=== PATIENT | male | born 1995 | race Caucasian/White ===

== ENCOUNTER 2017-06-15 22:26 | Emergency (ER) | END 2017-06-16 01:54 | disposition left against medical advice (07) ==

== ENCOUNTER 2017-06-16 20:43 | Inpatient (IN) | END 2017-06-19 16:24 | disposition home or self-care (01) | DRG 603 ==

== ENCOUNTER 2018-10-06 12:22 | Emergency (ER) | payer OTHER ==
[~2018-10-06] VITALS: Ht 172.7 cm; Wt 95.1 kg
[~2018-10-06 12:22] MED LIST: LEVO750T8 PO
[2018-10-06 12:48] VITALS: BP 119/76; PULSE 112; RESP 20; Ht 172.7 cm; Wt 95.1 kg
[2018-10-06] MEDS ORDERED: HYDROCODONE/APAP (5/325) TAB PO ONE (15:00)
[2018-10-06] MEDS ORDERED: LIDOCAINE 1% (MPF) 5 ML VIAL INFIL ONE (15:00)
[2018-10-06] MEDS ORDERED: CEPH-443 PO (15:46)
[2018-10-06] MEDS ORDERED: HYDR-4011 PO (15:46)
[2018-10-06] MEDS ORDERED: SULF1TAB31 PO (15:46)
[2018-10-06] MEDS ORDERED: IBUP-1542 PO (15:46)
--- NOTE | 2018-10-06 15:52 | ERD ---
ER Documentation Chief Complaint Chief Complaint c/o abscess on coccyx area x1 day HPI 22-year-old male presents for coccyx swelling x1 day. He states that he thinks he has an abscess. He did have incision and drainage about a year and a half ago in the same area. States that his pain is 5 out of 10, burning sensation, nonradiating. No treatments tried at home. No other modifying factors noted. Denies fevers or chills. ROS All systems reviewed and are negative except as per history of present illness. Medications Home Meds Active Scripts Hydrocodone/Acetaminophen (Isleta 5-325 Tablet) 1 Each Tablet, 1 TAB PO Q6H PRN for PAIN, #10 TAB Prov:TWIN DENSON 10/06/18 Ibuprofen* (Motrin*) 600 Mg Tab, 600 MG PO Q6, #30 TAB Prov:TWIN DENSON 10/06/18 Sulfamethoxazole/Trimethoprim* (Bactrim Ds* Tablet) 1 Each Tablet, 1 TAB PO BID for skin abscess for 5 Days, #10 TAB Prov:TWIN DENSON DO 10/06/18 Cephalexin* (Keflex*) 500 Mg Capsule, 500 MG PO TID for skin abscess for 5 Days, #15 CAP Prov:DENSONTWIN 10/06/18 Levofloxacin* (Levofloxacin*) 750 Mg Tablet, 750 MG PO DAILY for 7 Days, #7 TAB Prov:ELEAZAR CORBETT 06/19/17 Allergies Allergies: Coded Allergies: No Known Allergy (Unverified , 11/10/13) PMhx/Soc History of Surgery: No Anesthesia Reaction: No Hx Neurological Disorder: No Hx Respiratory Disorders: No Hx Cardiac Disorders: No Hx Psychiatric Problems: No Hx Miscellaneous Medical Probl: No Hx Alcohol Use: No Hx Substance Use: Yes (Meth, Marijuana) Hx Tobacco Use: Yes (daily) Smoking Status: Never smoker Physical Exam Vitals Vital Signs Date Temp Pulse Resp B/P (MAP) Pulse Ox O2 O2 Flow FiO2 Time Delivery Rate 10/06/18 99.4 112 20 119/76 98 12:48 (90) Physical Exam Const: No acute distress Resp: Clear to auscultation bilaterally Cardio: Regular rate and rhythm, no murmurs Skin: No petechiae or rashes Back: Coccyx area of swelling with erythema and fluctuance about 3 cm Ext: No cyanosis, or edema Neur: Awake and alert Psych: Normal Mood and Affect Results 24 hrs Current Medications Medications Dose Sig/Shayan Start Time Status Last (Trade) Ordered Route PRN Stop Time Admin Dose Reason Admin Lidocaine 5 ml ONCE ONCE 10/06/18 DC (Xylocaine INFIL 15:00 1% (Mpf)) 10/06/18 15:02 1 tab ONCE ONCE 10/06/18 DC 10/06/18 Acetaminophen PO 15:00 14:50 / 10/06/18 15:02 Hydrocodone Bitart (Isleta (/)) Procedures/MDM Abscess Incision and Drainage with irrigation by me: Location: Coccyx area Anesthesia: [Local 1% Lidocaine without epinephrine] Technique: [Irrigated. Disrupted loculations w/ instrumentation] Packing: [None] Complications: [Neurovascularly intact post procedure] 48 hour wound check. Scar minimization instructions given. Patient's skin symptoms have stabilized while they have been evaluated in the department and are appropriate for outpatient care and work up. Exam and w/u not consistent w/ sepsis, deep space infection, or foreign body. Medical Decision Making: Differential diagnosis includes but not limited to abscess, cellulitis, dermatitis Patient appeared well on physical exam. Physical examination consistent with an abscess, incision and drainage was done, see procedure note above. ED course: Patient was given Isleta. Symptoms improved with treatment. Patient advised to return to ER in 48 hours for wound check. Prescription(s): Patient given prescription for supportive medication(s), also given antibiotics Keflex and Bactrim as well as Isleta short course low-dose. Patient advised to follow up with PCP in 1-2 days. Patient advised to return to ED for new or worsening symptoms. Patient stable on discharge from the ED. The patient has been prescribed Isleta during this encounter. The patient has been warned about the use of narcotics. The patient should not drive or operate heavy machinery while taking this medication. The patient was also warned about the addictive properties of narcotic medications. Narcan prescription was NOT provided given the following criteria 1. No more than 5 tablets of Isleta 10 mg or 10 tablets of Isleta 5 mg were prescribed. 2. Concomitant opiate and benzodiazepine prescriptions were not provided. 3. There is no obvious evidence of prior history of opiate abuse or overdose. Disclaimer: Inadvertent spelling and grammatical errors are likely due to EHR/dictation software use and do not reflect on the overall quality of patient care. Also, please note that the electronic time recorded on this note does not necessarily reflect the actual time of the patient encounter. Departure Diagnosis: Primary Impression: Abscess Condition: Fair Patient Instructions: Abscess, Incision And Drainage Referrals: [facility] YOU HAVE RECEIVED A MEDICAL SCREENING EXAM AND THE RESULTS INDICATE THAT YOU DO NOT HAVE A CONDITION THAT REQUIRES URGENT TREATMENT IN THE EMERGENCY DEPARTMENT. FURTHER EVALUATION AND TREATMENT OF YOUR CONDITION CAN WAIT UNTIL YOU ARE SEEN IN YOUR DOCTORS OFFICE WITHIN THE NEXT 1-2 DAYS. IT IS YOUR RESPONSIBILITY TO MAKE AN APPOINTMENT FOR FOLOW-UP CARE. IF YOU HAVE A PRIMARY DOCTOR --you should call your primary doctor and schedule an appointment IF YOU DO NOT HAVE A PRIMARY DOCTOR YOU CAN CALL OUR PHYSICIAN REFERRAL HOTLINE AT IF YOU CAN NOT AFFORD TO SEE A PHYSICIAN YOU CAN CHOSE FROM THE FOLLOWING [facility] [address] [facility]. [facility] [address] [facility] [facility] [address] [facility] [address] [facility]. [facility] [address] [facility]. [facility]. [address] Additional Instructions: Call your primary care doctor TOMORROW for an appointment during the next 1-2 days.See the doctor sooner or return here if your condition worsens before your appointment time. Return to ER in 48 hours for wound check. complete course of antibiotics pain medication as needed and as directed for pain TWIN DENSON DO Oct 06, 2018 15:52
== END 2018-10-06 16:05 | disposition home or self-care (01) ==
LOC: FTE 12:22
DX: L02.212 Cutaneous abscess of back [any part, except buttock and flank] (principal)
CPT/HCPCS: 10060; Z7502; Z7610

== ENCOUNTER 2018-10-08 09:04 | Emergency (ER) | payer OTHER ==
[~2018-10-08] VITALS: Ht 177.8 cm; Wt 94.5 kg
[~2018-10-08 09:04] MED LIST changes: +CEPH-443 PO; +HYDR-4011 PO; +IBUP-1542 PO; +SULF1TAB31 PO
[2018-10-08 09:10] VITALS: BP 134/73; PULSE 89; RESP 18; Ht 177.8 cm; Wt 94.5 kg
[2018-10-08] MEDS ORDERED: IBUPROFEN 800 MG TAB PO ONE (10:00)
[2018-10-08] MEDS ORDERED: IBUP800T48 PO (10:36)
--- NOTE | 2018-10-08 16:27 | ERD ---
ER Documentation Chief Complaint Chief Complaint FOR RECHECK ON ABCESS HPI History of Present Illness: 22-year-old male with no past medical history coming today with complaints of recheck of abscess. Patient reports that he had incision and drainage procedure in the emergency department ON 10/06/18. Patient reports no systemic infection. At home pharmacological/nonpharmacological treatment for symptoms: Denies social concerns; Denies recent foreign travel ROS All systems reviewed and are negative except as per history of present illness. Medications Home Meds Active Scripts Ibuprofen* (Motrin*) 800 Mg Tab, 800 MG PO Q6H PRN for PAIN AND OR ELEVATED TEMP, #30 TAB Prov:IGLESIA SLADE V [employer] 10/08/18 Hydrocodone/Acetaminophen (Stratton 5-325 Tablet) 1 Each Tablet, 1 TAB PO Q6H PRN for PAIN, #10 TAB Prov:TWIN DENSON 10/06/18 Ibuprofen* (Motrin*) 600 Mg Tab, 600 MG PO Q6, #30 TAB Prov:TWIN DENSON DO 10/06/18 Sulfamethoxazole/Trimethoprim* (Bactrim Ds* Tablet) 1 Each Tablet, 1 TAB PO BID for skin abscess for 5 Days, #10 TAB Prov:JARETTTWIN 10/06/18 Cephalexin* (Keflex*) 500 Mg Capsule, 500 MG PO TID for skin abscess for 5 Days, #15 CAP Prov:DENSONTWIN 10/06/18 Levofloxacin* (Levofloxacin*) 750 Mg Tablet, 750 MG PO DAILY for 7 Days, #7 TAB Prov:ELEAZAR CORBETT 06/19/17 Allergies Allergies: Coded Allergies: No Known Allergy (Unverified , 11/10/13) PMhx/Soc Medical and Surgical Hx: pt denies Medical Hx, pt denies Surgical Hx History of Surgery: No Anesthesia Reaction: No Hx Neurological Disorder: No Hx Respiratory Disorders: No Hx Cardiac Disorders: No Hx Psychiatric Problems: No Hx Miscellaneous Medical Probl: No Hx Alcohol Use: No Hx Substance Use: Yes (Meth, Marijuana) Hx Tobacco Use: Yes (daily) Smoking Status: Current every day smoker FmHx Family History: diabetes; No coronary disease Physical Exam Vitals Vital Signs Date Temp Pulse Resp B/P (MAP) Pulse Ox O2 O2 Flow FiO2 Time Delivery Rate 10/08/18 98.3 89 18 134/73 99 09:10 (93) Physical Exam Const: No acute distress Head: Atraumatic Eyes: Normal Conjunctiva ENT: Normal External Ears, Nose and Mouth. Neck: Full range of motion. No meningismus. Resp: Clear to auscultation bilaterally Cardio: Regular rate and rhythm, no murmurs Abd: Soft, non tender, non distended. Normal bowel sounds Skin: No petechiae or rashes. Open pilonidal abscess noted to buttocks. Mild yellow drainage noted. No severe signs of infection. No fluctuance. Positive induration. No streaking. No surrounding cellulitis. Back: No midline or flank tenderness Ext: No cyanosis, or edema Neur: Awake and alert Psych: Normal Mood and Affect Results 24 hrs Current Medications Medications Dose Sig/Shayan Start Time Status Last (Trade) Ordered Route PRN Stop Time Admin Dose Reason Admin Ibuprofen 800 mg ONCE ONCE 10/08/18 DC (Motrin) PO 10:00 10/08/18 10:01 Procedures/MDM ED course includes a thorough examination and history. ED course includes dressing change Medications: Ibuprofen for pain Imaging:--- Labs: -- Low suspicion for life-threatening medical emergency. Otherwise healthy patient presenting with constellation of symptoms likely representing uncomplicated wound recheck as characterized by history, physical exam findings. No respiratory distress, otherwise relatively well appearing and nontoxic. Patient educated on diagnoses, prescriptions, follow-up care, return precautions. Strict return precautions given for worsening condition; questions answered discharge. Disposition for discharge with followup in 2 days with PCP/clinic. Departure Diagnosis: Primary Impression: Encounter for wound re-check Additional Impression: Hx of pilonidal cyst Condition: Stable Patient Instructions: Wound Check, Lac F/U (No Infection) Referrals: [facility] YOU HAVE RECEIVED A MEDICAL SCREENING EXAM AND THE RESULTS INDICATE THAT YOU DO NOT HAVE A CONDITION THAT REQUIRES URGENT TREATMENT IN THE EMERGENCY DEPARTMENT. FURTHER EVALUATION AND TREATMENT OF YOUR CONDITION CAN WAIT UNTIL YOU ARE SEEN IN YOUR DOCTORS OFFICE WITHIN THE NEXT 1-2 DAYS. IT IS YOUR RESPONSIBILITY TO MAKE AN APPOINTMENT FOR FOLOW-UP CARE. IF YOU HAVE A PRIMARY DOCTOR --you should call your primary doctor and schedule an appointment IF YOU DO NOT HAVE A PRIMARY DOCTOR YOU CAN CALL OUR PHYSICIAN REFERRAL HOTLINE AT IF YOU CAN NOT AFFORD TO SEE A PHYSICIAN YOU CAN CHOSE FROM THE FOLLOWING [facility] [address] [facility] [address] [facility] [facility] [address] [facility] [address] [facility] [address] [facility]. [facility] [address] [facility]. [facility] YOU HAVE RECEIVED A MEDICAL SCREENING EXAM AND THE RESULTS INDICATE THAT YOU DO NOT HAVE A CONDITION THAT REQUIRES URGENT TREATMENT IN THE EMERGENCY DEPARTMENT. FURTHER EVALUATION AND TREATMENT OF YOUR CONDITION CAN WAIT UNTIL YOU ARE SEEN IN YOUR DOCTORS OFFICE WITHIN THE NEXT 1-2 DAYS. IT IS YOUR RESPONSIBILITY TO MAKE AN APPOINTMENT FOR FOLOW-UP CARE. IF YOU HAVE A PRIMARY DOCTOR --you should call your primary doctor and schedule and appointment IF YOU DO NOT HAVE A PRIMARY DOCTOR YOU CAN CALL OUR PHYSICIAN REFERRAL HOTLINE AT . IF YOU CAN NOT AFFORD TO SEE A PHYSICIAN YOU CAN CHOSE FROM THE FOLLOWING [facility] INSTITUTIONS: [facility] [address] [place] [address] [facility] [address] [place] [address] [facility] + [facility] [address] [place] [address] Additional Instructions: Thank you very much for allowing us to participate in your care. Your health and safety is our top priority at [facility]. It is important to read all discharge instructions and education provided in your discharge packet. *These pilonidal cysts usually recur. Is very important talk to your primary care doctor regarding if a surgical consultation/referral is needed to determine if IT needs to be surgically removed.* Call your primary care doctor TOMORROW for an appointment in 7 days and bring all the information and medications prescribed. Have prescriptions filled and follow precisely the directions on the label. -Ibuprofen 800 mg is a anti-inflammatory/pain medication; take this medication daily as prescribed for the next week to help with swelling/inflammation/pain. If the symptoms get worse and your provider is unavailable, return to the Emergency Department immediately. If you develop increased pain uncontrolled with medication, significant drainage that is odorous/yellow/green, fever, chills; return to emergency department. IGLESIA SLADE NP Oct 08, 2018 16:27
== END 2018-10-08 12:09 | disposition left against medical advice (07) ==
LOC: FTE 09:04
DX: L05.01 Pilonidal cyst with abscess (principal); F17.210 Nicotine dependence, cigarettes, uncomplicated
CPT/HCPCS: Z7502; Z7610; 99282